=== PATIENT | male | born 1990 | race African-American/Black ===

== ENCOUNTER 2016-11-15 14:18 | Emergency (ER) | payer SELFPAY ==
[2016-11-15] MEDS ORDERED: DIPHENHYDRAMINE HCL 50 MG CAPSULE PO ONE (14:27)
--- NOTE | 2016-11-15 14:30 | ER Document Report ---
ED Medical Screen (RME) - General Stated Complaint: POSSIBLE ALERGIC REACTION Time seen by provider: 14:26 Mode of Arrival: Ambulatory Information source: Patient Notes: 26-year-old male developed generalized itching after second dose of penicillin on Monday after oral surgery for wisdom teeth. He wants to know what he can do for the itching. I do not see a rash at this time. Patient has is why they can come get him to take him home after he is treated. I have greeted and performed a rapid initial assessment of this patient. A comprehensive ED assessment, evaluation of the patient, analysis of test results , and completion of the medical decision making process will be conducted by additional ED providers. TRAVEL OUTSIDE OF THE [place] IN LAST 30 DAYS: No - Related Data Allergies/Adverse Reactions: No Known Allergies Allergy (Verified 11/15/16 14:21) Past Medical History - Past Medical History Cardiac Medical History: Denies: Hx Heart Attack, Hx Hypercholesterolemia, Hx Hypertension, Hx Peripheral Vascular Disease, Hx Pulmonary Embolism, Hx Heart Murmur Pulmonary Medical History: Reports: Hx Asthma - Immunizations Hx Diphtheria, Pertussis, Tetanus Vaccination: Yes Physical Exam - Vital signs Vitals: Temp Pulse Resp BP Pulse Ox 98.2 F 113 H 14 136/89 H 98 11/15/16 14:23 11/15/16 14:23 11/15/16 14:23 11/15/16 14:23 11/15/16 14:23 Course - Vital Signs Vital signs: Temp Pulse Resp BP Pulse Ox 98.2 F 113 H 14 136/89 H 98 11/15/16 14:23 11/15/16 14:23 11/15/16 14:23 11/15/16 14:23 11/15/16 14:23
--- NOTE | 2016-11-15 16:25 | ER Document Report ---
ED General - General Chief Complaint: Allergic Reaction Stated Complaint: POSSIBLE ALERGIC REACTION Time seen by provider: 16:20 Mode of Arrival: Ambulatory Information source: Patient Notes: 26-year-old male had right lower wisdom tooth removed 5 days ago. He was prescribed penicillin at that time and notes that after the second dose he began breaking out over his entire body with an itching red rash and had a sensation of swelling around his upper and lower lips. He reports he briefly had a sensation of difficulty breathing with that. He has not taken any more penicillin and says all these symptoms are better but not completely resolved. He says he was also prescribed medication for pain but has not taken any of that. He reports he has virtually no pain at the surgical site and has not noted any swelling in the area. No he's not been on antibiotics since the day of surgery. Physical Exam: General: Alert, appears well. HEENT: Normocephalic. Atraumatic. PERRLA. Extraocular movements intact. Oropharynx clear. Right lower wisdom tooth site appears healthy with no signs or symptoms of infection. Patient has no edema in the face or tongue and no stridor or hoarseness or drooling Neck: Supple. Non-tender. Respiratory: No respiratory distress. Clear and equal breath sounds bilaterally. Cardiovascular: Regular rate and rhythm. Abdominal: Normal Inspection. Soft, non-tender. No distension. Normal Bowel Sounds. Back: Non-tender. No deformity or step off. Extremities: Moves all four extremities. Upper extremities: Normal inspection. Non-tender. Normal color. Normal ROM. Normal temperature. Lower extremities: Normal inspection. Non-tender. No edema. Normal color. Normal ROM. Normal temperature. Neurological: Cranial nerves II-XII grossly intact bilaterally. Strength 5/5 throughout. Sensation intact to light touch. Normal cognition. AAOx4. Normal speech. Psychological: Normal affect. Normal Mood. Skin: Warm. Dry. Normal color. Patient has no rash currently TRAVEL OUTSIDE OF THE [place] IN LAST 30 DAYS: No - Related Data Allergies/Adverse Reactions: No Known Allergies Allergy (Verified 11/15/16 14:21) Past Medical History - General Information source: Patient - Social History Smoking Status: Never Smoker Frequency of alcohol use: None Drug Abuse: None Family History: Reviewed & Not Pertinent Patient has suicidal ideation: No Patient has homicidal ideation: No - Past Medical History Cardiac Medical History: Denies: Hx Heart Attack, Hx Hypercholesterolemia, Hx Hypertension, Hx Peripheral Vascular Disease, Hx Pulmonary Embolism, Hx Heart Murmur Pulmonary Medical History: Reports: Hx Asthma Renal/ Medical History: Denies: Hx Peritoneal Dialysis - Immunizations Hx Diphtheria, Pertussis, Tetanus Vaccination: Yes Review of Systems - Review of Systems Constitutional: denies: Chills, Fever EENT: denies: Ear pain, Throat pain Cardiovascular: denies: Chest pain Respiratory: denies: Cough Gastrointestinal: denies: Abdominal pain, Nausea, Vomiting Genitourinary: denies: Burning Musculoskeletal: denies: Back pain Skin: See HPI Hematologic/Lymphatic: denies: Swollen glands Neurological/Psychological: denies: Weakness, Numbness Physical Exam - Vital signs Vitals: Temp Pulse Resp BP Pulse Ox 98.2 F 113 H 14 136/89 H 98 11/15/16 14:23 11/15/16 14:23 11/15/16 14:23 11/15/16 14:23 11/15/16 14:23 Course - Re-evaluation Re-evalutation: 11/15/16 16:24 Patient is describing symptoms concerning for allergic reaction to penicillin though it is surprising that he still has any symptoms at all having not taken any in 4 days. He reports scribed Medrol Dosepak but of instructed him that he does not need to fill that if he finds the Benadryl alone helps his symptoms should resolve on her own within the next few days in any case. - Vital Signs Vital signs: Temp Pulse Resp BP Pulse Ox 98.2 F 113 H 14 136/89 H 98 11/15/16 14:23 11/15/16 14:23 11/15/16 14:23 11/15/16 14:23 11/15/16 14:23 Discharge - Discharge Clinical Impression: Penicillin allergy Condition: Stable Disposition: HOME, SELF-CARE Additional Instructions: You may take Benadryl 25 mg up to 4 times a day for itching. You may take Pepcid 20 mg twice a day for rash. Your prescribed Medrol which will also help with itching and rash but if her symptoms get better without this you do not need to fill the prescription. Call your dentist in left him know that you are unable to take the penicillin. Prescriptions: Methylprednisolone [Medrol Dosepack (4 mg/Tab) 21 Tab/Dosepak] 4 mg PO ASDIR PRN #21 [email or web address] PRN Reason:
[2016-11-15 16:56] VITALS: BP 127/82
== END 2016-11-15 16:55 | disposition home or self-care (01) ==
LOC: ER 14:18
DX: L27.0 Generalized skin eruption due to drugs and medicaments taken internally (principal); T36.0X5A Adverse effect of penicillins, initial encounter
CPT/HCPCS: 99283

== ENCOUNTER 2016-11-17 19:15 | Emergency (ER) | payer SELFPAY ==
[2016-11-17] MEDS ORDERED: IBUPROFEN 800 MG TABLET PO ONE (20:19)
--- NOTE | 2016-11-17 20:19 | ER Document Report ---
ED Medical Screen (RME) - General Stated Complaint: FEVER Notes: Patient is a 26-year-old male presents emergency Department with 2 days of fever , chills, body aches and chest pain, headache. Patient states that he's been treating his fever at home with by mouth antipyretics. Last dose was 11 AM. Denies any sick contacts at home. didnt receive a flu vaccine this year I have greeted and performed a rapid initial assessment of this patient. A comprehensive ED assessment and evaluation of the patient, analysis of test results and completion of the medical decision making process will be conducted by additional ED providers. TRAVEL OUTSIDE OF THE [place] IN LAST 30 DAYS: No - Related Data Allergies/Adverse Reactions: Penicillins Allergy (Verified 11/17/16 20:17) Past Medical History - Past Medical History Cardiac Medical History: Denies: Hx Heart Attack, Hx Hypercholesterolemia, Hx Hypertension, Hx Peripheral Vascular Disease, Hx Pulmonary Embolism, Hx Heart Murmur Pulmonary Medical History: Reports: Hx Asthma Renal/ Medical History: Denies: Hx Peritoneal Dialysis - Immunizations Hx Diphtheria, Pertussis, Tetanus Vaccination: Yes Physical Exam - Vital signs Vitals: Temp Pulse Resp BP Pulse Ox 102.8 F H 109 H 17 131/87 H 98 11/17/16 20:07 11/17/16 20:07 11/17/16 20:07 11/17/16 20:07 11/17/16 20:07 Course - Vital Signs Vital signs: Temp Pulse Resp BP Pulse Ox 102.8 F H 109 H 17 131/87 H 98 11/17/16 20:07 11/17/16 20:07 11/17/16 20:07 11/17/16 20:07 11/17/16 20:07
--- NOTE | 2016-11-17 22:19 | ER Document Report ---
ED Flu Like - General Mode of Arrival: Ambulatory Information source: Patient TRAVEL OUTSIDE OF THE [place] IN LAST 30 DAYS: No - General Chief Complaint: Flu Symptoms Stated Complaint: FEVER Notes: Patient is a 26-year-old male that presents to the emergency department today with complaints of flu-like symptoms including nasal congestion, fevers, body aches, and chills. Patient states he has had these symptoms for the last few days. Patient's significant other at bedside was diagnosed with the flu a few weeks ago. Patient has past medical history consistent with asthma. (KEITH MILTON) - Related Data Allergies/Adverse Reactions: Penicillins Allergy (Verified 11/17/16 20:17) Past Medical History - General Information source: Patient - Social History Smoking Status: Never Smoker Cigarette use (# per day): No Chew tobacco use (# tins/day): No Frequency of alcohol use: None Drug Abuse: None Lives with: Family Family History: Reviewed & Not Pertinent Patient has suicidal ideation: No Patient has homicidal ideation: No Pulmonary Medical History: Reports: Hx Asthma Surgical Hx: Negative - Immunizations Hx Diphtheria, Pertussis, Tetanus Vaccination: Yes Review of Systems - Review of Systems Constitutional: See HPI, Fever EENT: See HPI, Nose congestion Cardiovascular: No symptoms reported Respiratory: See HPI, Cough Gastrointestinal: No symptoms reported Genitourinary: No symptoms reported Male Genitourinary: No symptoms reported Musculoskeletal: See HPI, Joint pain - generalized body aches Skin: No symptoms reported Hematologic/Lymphatic: No symptoms reported Neurological/Psychological: No symptoms reported -: Yes All other systems reviewed and negative Physical Exam - General General appearance: Appears well, Alert In distress: None - HEENT Head: Normocephalic, Atraumatic Eyes: Normal Conjunctiva: Normal Extraocular movements intact: Yes Nasal: Clear rhinorrhea - congestion - Respiratory Respiratory status: No respiratory distress Chest status: Nontender Breath sounds: Normal - Cardiovascular Rhythm: Regular Heart sounds: Normal auscultation Murmur: No - Abdominal Inspection: Normal Distension: No distension Bowel sounds: Normal Tenderness: Nontender - Extremities General upper extremity: Normal inspection, Normal ROM. No: Edema General lower extremity: Normal inspection, Normal ROM. No: Edema - Neurological Neuro grossly intact: Yes Cognition: Normal Orientation: AAOx4 Speech: Normal - Psychological Associated symptoms: Normal affect, Normal mood - Skin Skin Temperature: Warm Skin Moisture: Dry Skin Color: Normal Course - Re-evaluation Re-evalutation: 11/17/16 23:15 I personally performed the services described in the documentation, reviewed and edited the documentation which was dictated to my scribe in my presence, and it accurately records my words and actions. She presents the mother to 2 day history of fever chills bodyache chest hurts when he coughs Dr. bay 102S taken Tylenol Motrin given Motrin here with improvement. Patient is well-appearing nontoxic negative strep negative chest x- ray positive flu. Patient does not have money to pay over 100 hours for the Tamiflu prescription nor does he need it because symptoms been going on for 24 hours. He is stable for discharge Tylenol every 4 Motrin every 6 close PCP follow-up and discuss reasons for ED return sooner (LIZETTE SPRINGER) - Vital Signs Vital signs: Temp Pulse Resp BP Pulse Ox 99.0 F 92 17 138/76 H 97 11/17/16 23:38 11/17/16 23:38 11/17/16 23:38 11/17/16 23:38 11/17/16 23:38 Discharge - Discharge Clinical Impression: Influenza A Condition: Stable Disposition: HOME, SELF-CARE Additional Instructions: Influenza What are conditions that should receive medical attention? The development of difficulty breathing. Lip color changes to blue or purple. Persistent vomiting and unable to keep liquids down with signs of dehydration such as: dizziness when standing, unable to urinate, or if child/ is crying no tears are noticed. Is less responsive than normal or becomes confused. How do I decrease the spread of flu in my home? Taking care of the sick patient at home: Keep the sick person in a room separate from the common areas of the house. Keep the "sickroom" door closed. If the person with the flu needs to leave the home, they should cover their nose/mouth when coughing or sneezing and wear a disposable (surgical) mask if available. These masks may be available at your local pharmacy, medical supply and hardware store. If the sick person is in common areas of the house, have them wear a surgical mask. If possible, have the sick person use a separate bathroom that should be cleaned daily with a household disinfectant. If you are the caregiver: Avoid being face to face with the sick adult person as much as possible. Try to stay at least 6 feet away and wear a disposable surgical mask when possible. When holding small children who are sick, place their chin on your shoulder so that they will not cough in your face. Wash your hands after you touch the sick person or handle their tissues and laundry. Wear a mask if you leave home, as you may be infected from taking care of someone and not know it yet. Watch yourself and others in the home for flu symptoms and contact your doctor if symptoms occur. NOTE: Antiviral medication used to reduce the symptoms of the flu works only if taken within 48 hours, and best within 24 hours of symptom onset. Household Cleaning, laundry and waste disposal: Tissues and other disposable items used by the sick person should be thrown away in the trash. Wash your hands after touching these used items. No special waste disposal is required. Keep surfaces (especially bedside tables, bathroom surfaces, and toys for children) clean by wiping them down with a safe household disinfectant according to the directions on the product label. Per CDC advice, most people will not receive testing to confirm flu. Also based on the person's health history and onset of symptoms, not all patients will receive prescriptions for antiviral medications. If you have questions related to this, please ask your healthcare provider. For more information, you can call the Centers for Disease Control and Prevention (CDC) Hotline at 3-775-[employer] This line is available in [place]ayan and Malagasy, 24 hours a day, 7 days a week. Or www.[employer] or www.cdc.gov Flu-Like Illness Home Instructions: The influenza virus infection can cause a wide rage of symptoms, including: Fever, cough, sore throat, body aches, headaches, chills, fatigue, with some patients reporting diarrhea and vomiting Like seasonal influenza A, H1N1 ("swine flu")in humans can vary in severity from mild to severe Severe illness with pneumonia, respiratory failure and even is possible Certain groups might be more likely to develop a severe illness from H1N1 infection. Sometimes bacterial infections may occur at the same time as or after infection with influenza viruses and lead to pneumonias, ear infections, or sinus infections. How Flu Spreads The main way that influenza viruses spread is through respiratory droplets of coughs and sneezes. This can happen when someone with the infection coughs or sneezes and the particles fly through the air and land on other people and surfaces. If the person covers their mouth and nose with their hand but does not wash their hands immediately, then these germs are passed onto the next object that they touch. People with Influenza A or suspected H1N1 (swine flu) who are cared for at home should: Check with their doctor about any special care that they might need if they are or have a health condition such as diabetes, heart disease, asthma or emphysema. Also, limit caregiver to one (if possible). women or those with chronic health conditions should not take care of the flu patient unless necessary. Check with their doctor about whether or not medications are needed that may lessen the symptoms of the flu. Stay at home until 24 hours fever free without the use of fever reducing medication. Get plenty of rest and avoid other healthy people in your home. Drink plenty of clear liquids to keep from getting dehydrated. Take medications like Tylenol (Acetaminophen), Advil/Motrin/Nuprin ( Ibuprofen) or Aleve (Naproxen) for fevers and aches. All children under the age of 18 years of age should not take aspirin or products containing aspirin (e.g. Pepto Bismol), as this can cause a rare serious illness called Akin Syndrome. Over the counter medications for flu and colds may help, but it is very important to follow the package directions. Remember that the medicine may help the symptoms, but it will not help prevent others from getting sick if they are around you. Cover coughs and sneezes using your bent arm. Clean hands with soap and water or an alcohol-based hand rub often, especially after using tissues to cough or sneeze. Encourage hand washing frequently for all people living in the home! The sick person should not have visitors other than caregivers. Encourage concerned loved ones to call instead of visit. Avoid close contact with others-do not go to work or school while sick. Forms: Return to Work Referrals: [facility] [Provider Group] - Follow up in 3-5 days Scribe Documentation - Scribe Written by Surinder:: Surinder Lane, 11/18/2016 0001 acting as scribe for :: Coleman
[2016-11-17 23:39] VITALS: BP 138/76
== END 2016-11-17 23:38 | disposition home or self-care (01) ==
LOC: ER 19:15
DX: J11.1 Influenza due to unidentified influenza virus with other respiratory manifestations (principal); R09.81 Nasal congestion; R50.9 Fever, unspecified; M25.50 Pain in unspecified joint; R05 Cough; R07.89 Other chest pain; J45.909 Unspecified asthma, uncomplicated; Z88.0 Allergy status to penicillin; J34.89 Other specified disorders of nose and nasal sinuses
CPT/HCPCS: 71020; 87070; 87804; 87880; 99284

== ENCOUNTER 2017-12-24 12:38 | Emergency (ER) | payer SELFPAY ==
[2017-12-24 13:04] VITALS: BP 115/75
[2017-12-24] MEDS ORDERED: DEXAMETHASONE SOD PHOS INJ 10 MG/1 ML VIAL IM ONE (14:33)
--- NOTE | 2017-12-24 14:35 | ER Document Report ---
HPI - HPI Pain Level: 3 Notes: Patient is a 27-year-old male who presents to the ED complaining of nasal congestion/discharge, dry nonproductive cough, fever, sore throat, body ache 1 day. Pt exposed to strep by daughter recently. Patient states that he is still eating and drinking without difficulties, but does have a decreased p.o. intake. He is still urinating normally having normal bowel movements. Patient has been using some [id number] meds for symptoms. He denies any significant past medical history including cardiopulmonary history and immunocompromised conditions. Patient denies any smoking or IV drug use. Denies any current headache, neck pain, chest pain, palpitations, syncope, shortness of breath, wheeze, dyspnea, abdominal pain, nausea/vomiting/diarrhea, urinary retention, dysuria, hematuria, or rash. - ROS Systems Reviewed and Negative: Yes All other systems reviewed and negative - CONSTITUTIONAL Constitutional: REPORTS: Fever - yesterday. DENIES: Chills - EENT EENT: REPORTS: Sore Throat - NEURO Neurology: REPORTS: Headache Past Medical History - Social History Smoking Status: Never Smoker Chew tobacco use (# tins/day): No Drug Abuse: None Family History: Reviewed & Not Pertinent Patient has suicidal ideation: No Patient has homicidal ideation: No - Past Medical History Cardiac Medical History: Denies: Hx Heart Attack, Hx Hypercholesterolemia, Hx Hypertension, Hx Peripheral Vascular Disease, Hx Pulmonary Embolism, Hx Heart Murmur Pulmonary Medical History: Reports: Hx Asthma Renal/ Medical History: Denies: Hx Peritoneal Dialysis - Immunizations Hx Diphtheria, Pertussis, Tetanus Vaccination: Yes Vertical Provider Document - CONSTITUTIONAL Agree With Documented VS: Yes Notes: PHYSICAL EXAMINATION: GENERAL: Well-appearing, well-nourished and in no acute distress. A&Ox4. Answers questions appropriately. Moves comfortably w/o notable distress HEAD: Atraumatic, normocephalic. EYES: Pupils equal round and reactive to light, extraocular movements intact, sclera anicteric, conjunctiva are normal. ENT: EAC clear b/l. TM's intact b/l without erythema, fluid, or perforation. Nares patent and with clear discharge. oropharynx mild erythema without exudates. 2+ tonsilar hypertrophy with erythema no exudate. No palatine shift. Uvula midline. No tongue protrusion. No drooling, hoarseness, or airway compromise. Moist mucous membranes. No sinus tenderness. NECK: Normal range of motion, supple without lymphadenopathy. No rigidity/ meningismus. LUNGS: Breath sounds clear to auscultation bilaterally and equal. No wheezes rales or rhonchi. No retractions HEART: Regular rate and rhythm without murmurs, rubs, gallops. ABDOMEN: Soft, nontender, nondistended abdomen. No guarding, no rebound. No masses appreciated. Normal bowel sounds present. No CVA tenderness bilaterally. No hepatosplenomegaly. NEUROLOGICAL: Normal speech, normal gait. Normal sensory, motor exams PSYCH: Normal mood, normal affect. SKIN: Warm, Dry, normal turgor, no rashes or lesions noted. - INFECTION CONTROL TRAVEL OUTSIDE OF THE [place] IN LAST 30 DAYS: No Course - Re-evaluation Re-evalutation: 12/24/17 14:33 Patient is an afebrile, well-hydrated, 27-year-old male who presents to the ED with acute URI/pharyngitis, suspect influenza vs other viral illness. Vitals are acceptable. PE is otherwise unremarkable. Rapid strep negative with a cx pending. No other labs or imaging warranted at this time based on H&P. Patient has no significant cardiopulmonary or immunocompromised medical conditions. Patient's lungs are clear to auscultation bilaterally without tachycardia, hypoxia, or tachypnea. Patient is tolerating p.o. without any difficulties. Decadron given IM today. Thoroughly reviewed the risks, benefits , potential side effects, estimated cost without insurance with patient. After thorough review, patient declined Tamiflu at this time. Low suspicion for any meningitis, sepsis, peritonsillar/pharyngeal abscess, respiratory compromise, severe dehydration, or other emergent systemic condition at this time. Patient is aware this condition can change from initial presentation and he needs to monitor symptoms closely. Conservative measures otherwise for symptoms. Recheck with your PCM in 3-5 days. Return to the ED with any worsening/ concerning symptoms otherwise as reviewed in discharge. Patient is in agreement. - Vital Signs Vital signs: Temp Pulse Resp BP Pulse Ox 98.7 F 60 18 115/75 95 12/24/17 13:03 12/24/17 13:03 12/24/17 13:03 12/24/17 13:03 12/24/17 13:03 Discharge - Discharge Clinical Impression: Acute URI Acute pharyngitis Qualifiers: Pharyngitis/tonsillitis etiology: unspecified etiology Qualified Code(s): J02.9 - Acute pharyngitis, unspecified Condition: Stable Disposition: HOME, SELF-CARE Instructions: Upper Respiratory Illness ([facility]), Sore Throat ([facility]) Additional Instructions: Maintain adequate fluid intake Take meds as directed Salt water gargles, throat sprays, mouthwash rinse, peroxide gargles tylenol/ibuprofen as needed over the counter cold medication as needed for symptoms F/u: with your PCM in 3-5 days for a recheck Consider consult with ENT for ongoing/worsening symptoms Return to the ED with any fever, worsening pain, chest pain, neck pain/stiffness , shortness of breath, cough, drooling, trouble swallowing/breathing, abdominal pain, n/v/d, rash, or worsening/concerning symptoms otherwise. Referrals: PRISCILA ALEXANDER DO [ASSOCIATE] - Follow up as needed
== END 2017-12-24 15:15 | disposition home or self-care (01) ==
LOC: ER 12:38
DX: J06.9 Acute upper respiratory infection, unspecified (principal); J02.0 Streptococcal pharyngitis; R51 Headache
CPT/HCPCS: 99283; 96372; 87880; J1100

== ENCOUNTER 2018-07-30 10:39 | Emergency (ER) | payer SELFPAY ==
[2018-07-30] MEDS ORDERED: ALBUTEROL SULFATE 0.083% NEB 2.5 MG/3 ML AMPUL NEB ONE (12:03)
--- NOTE | 2018-07-30 12:06 | ER Document Report ---
ED Respiratory Problem - General Chief Complaint: Shortness Of Breath Stated Complaint: DIFFICULTY BREATHING Time Seen by Provider: 07/30/18 11:32 Notes: 27-year-old male to the emergency department for evaluation of cough, wheeze and shortness of breath. Patient states he has a history of asthma. Requesting some albuterol. Also has some congestion and some body aches and generally not feeling well. A few other sick contacts he has been around this week. TRAVEL OUTSIDE OF THE [place] IN LAST 30 DAYS: No - HPI Patient complains to provider of: Cough, Hurts to breath, Short of breath Duration: Continuous Context: Hx asthma Chest pain/discomfort: Tightness Cough: Nonproductive - Related Data Allergies/Adverse Reactions: No Known Allergies Allergy (Unverified 07/30/18 11:18) Past Medical History - General Information source: Patient - Social History Smoking Status: Never Smoker Chew tobacco use (# tins/day): No Frequency of alcohol use: None Drug Abuse: None Lives with: Family Family History: Reviewed & Not Pertinent Patient has suicidal ideation: No Patient has homicidal ideation: No - Past Medical History Cardiac Medical History: Denies: Hx Heart Attack, Hx Hypercholesterolemia, Hx Hypertension, Hx Peripheral Vascular Disease, Hx Pulmonary Embolism, Hx Heart Murmur Pulmonary Medical History: Reports: Hx Asthma Renal/ Medical History: Denies: Hx Peritoneal Dialysis - Immunizations Hx Diphtheria, Pertussis, Tetanus Vaccination: Yes Review of Systems - Review of Systems Notes: Constitutional: denies: Chills, Diaphoresis, Fever, Malaise, Weakness EENT: denies: Eye discharge, Blurred vision, Tearing, Double vision, Nose congestion, Nose discharge, Throat swelling, Mouth pain Cardiovascular: denies: Palpitations, Heart racing, Orthopnea, Dyspnea, Chest pain Respiratory: Complaining of cough, shortness of breath, wheeze Gastrointestinal: denies: Abdominal pain, Diarrhea, Nausea, Vomiting, Black stools, bright red blood in stool Genitourinary: denies: Burning, Dysuria, Discharge, Frequency, Flank pain, Hematuria Musculoskeletal: denies: Joint pain, Joint swelling, Muscle pain, Muscle stiffness, back pain Hematologic/Lymphatic: denies: Anemia, Easy bleeding, Easy bruising, Blood clots Neurological/Psychological: denies: Confusion, Dementia, Depression, Loss of consciousness Skin: No lesions, no masses, no skin breakdown, no abscesses Physical Exam - Vital signs Vitals: Temp Pulse Resp BP Pulse Ox 97.3 F 83 14 124/76 98 07/30/18 10:46 07/30/18 10:46 07/30/18 10:46 07/30/18 10:46 07/30/18 10:46 Interpretation: Normal - General General appearance: Appears well, Alert - HEENT Head: Normocephalic, Atraumatic Eyes: Normal Pupils: PERRL - Respiratory Respiratory status: No respiratory distress Chest status: Nontender Breath sounds: Nonproductive cough, Wheezing. No: Decreased air movement, Rales , Rhonchi, Stridor Chest palpation: Normal - Cardiovascular Rhythm: Regular Heart sounds: Normal auscultation Murmur: No - Abdominal Inspection: Normal Distension: No distension Bowel sounds: Normal Tenderness: Nontender Organomegaly: No organomegaly - Back Back: Normal, Nontender - Extremities General upper extremity: Normal inspection, Nontender, Normal color, Normal ROM , Normal temperature General lower extremity: Normal inspection, Nontender, Normal color, Normal ROM , Normal temperature, Normal weight bearing. No: Yossi's sign - Neurological Neuro grossly intact: Yes Cognition: Normal Orientation: AAOx4 Sanam Coma Scale Eye Opening: Spontaneous Sanam Coma Scale Verbal: Oriented Friend Coma Scale Motor: Obeys Commands Friend Coma Scale Total: 15 Speech: Normal Motor strength normal: LUE, RUE, LLE, RLE Sensory: Normal - Psychological Associated symptoms: Normal affect, Normal mood - Skin Skin Temperature: Warm Skin Moisture: Dry Skin Color: Normal Course - Re-evaluation Re-evalutation: 07/30/18 16:19 Will give patient prescription for albuterol and prednisone. Patient is comfortable with this plan. Advised to return for any worsening symptoms. - Vital Signs Vital signs: Temp Pulse Resp BP Pulse Ox 97.3 F 72 18 124/77 99 07/30/18 10:46 07/30/18 12:26 07/30/18 12:26 07/30/18 12:26 07/30/18 12:26 Discharge - Discharge Clinical Impression: Bronchitis Condition: Good Disposition: HOME, SELF-CARE Instructions: Bronchitis ([facility]) Prescriptions: Albuterol Sulfate [Ventolin 0.083% Neb 2.5 mg/3 mL Ampul] 1 vial NEB Q4H PRN 5 Days #25 vial PRN Reason: Prednisone [Deltasone 20 mg Tablet] 60 mg PO DAILY 5 Days #15 tablet Forms: Return to Work
[2018-07-30 12:27] VITALS: BP 124/77
== END 2018-07-30 12:27 | disposition home or self-care (01) ==
LOC: ER 10:39
DX: J45.909 Unspecified asthma, uncomplicated (principal); R06.02 Shortness of breath; R05 Cough; R09.81 Nasal congestion; M79.10 Myalgia, unspecified site; I10 Essential (primary) hypertension
CPT/HCPCS: 94640; 99284

== ENCOUNTER 2018-12-08 20:07 | Emergency (ER) | payer SELFPAY ==
--- NOTE | 2018-12-08 21:13 | RADIOLOGY REPORT (SQ) ---
EXAM DESCRIPTION: XR KNEE 4 OR MORE VIEWS COMPLETED DATE/TME: 12/08/2018 00:00 CLINICAL HISTORY: 28 years, Male, INJURY COMPARISON: None. FINDINGS: No fracture or dislocation. Soft tissues are unremarkable. IMPRESSION: No acute abnormality.
[2018-12-08] MEDS ORDERED: IBUPROFEN 600 MG TABLET PO ONE (22:27)
[2018-12-08] MEDS ORDERED: ACETAMINOPHEN 325 MG TABLET PO ONE (22:27)
--- NOTE | 2018-12-08 22:31 | ER Document Report ---
Addendum entered and electronically signed by ODETTE GARCIA FNP 12/08/18 22:59: Discharge - Discharge Clinical Impression: Right knee pain Qualifiers: Chronicity: acute Qualified Code(s): M25.561 - Pain in right knee Condition: Stable Disposition: HOME, SELF-CARE Instructions: Use of Crutches ([facility]), Ice & Elevation ([facility]), Knee Immobilizing Splint ([facility]), Sprained Knee ([facility]) Additional Instructions: You were seen today in the emergency department after a knee injury. You have been provided crutches and a knee immobilizer. Please follow-up with orthopedics in regards to this visit. You can take ibuprofen 600 mg and acetaminophen 1000 mg every 6 hours as needed for your pain. If you have worsening symptoms, or unable to walk, or have any symptoms that are worrisome to you, please return to the emergency department. Forms: Return to Work Referrals: TRACIE ALCALA, [ACTIVE STAFF] - Follow up as needed Original Note: HPI - HPI Time Seen by Provider: 12/08/18 22:14 Pain Level: 5 Context: Patient is a 28-year-old male who presents emergency department with a chief complaint of right knee pain. He was playing basketball and was running. She states that when he was running his knee gave out and he felt like it moved medial than laterally. This happened around 1830 this evening. He has a past medical history of tendinitis from when he was in eighth grade. Denies any other past medical history. He has not taken any medication for the pain. Walking makes pain worse. He is able to bend his knee to 90 degrees, but it is painful. And also hurts when he steps down on his foot. - ROS Systems Reviewed and Negative: Yes All other systems reviewed and negative - CONSTITUTIONAL Constitutional: DENIES: Fever, Chills - GASTROINTESTINAL Gastrointestinal: DENIES: Abdominal Pain - MUSCULOSKELETAL Musculoskeletal: REPORTS: Extremity pain - rt knee - DERM Skin Color: Normal Skin Problems: None Past Medical History - Social History Smoking Status: Current Every Day Smoker Frequency of alcohol use: None Drug Abuse: None Family History: Reviewed & Not Pertinent Patient has suicidal ideation: No Patient has homicidal ideation: No - Past Medical History Cardiac Medical History: Denies: Hx Heart Attack, Hx Hypercholesterolemia, Hx Hypertension, Hx Peripheral Vascular Disease, Hx Pulmonary Embolism, Hx Heart Murmur Pulmonary Medical History: Reports: Hx Asthma Renal/ Medical History: Denies: Hx Peritoneal Dialysis - Immunizations Hx Diphtheria, Pertussis, Tetanus Vaccination: Yes Vertical Provider Document - CONSTITUTIONAL Agree With Documented VS: Yes Exam Limitations: No Limitations General Appearance: No Apparent Distress - INFECTION CONTROL TRAVEL OUTSIDE OF THE [place] IN LAST 30 DAYS: No - HEENT HEENT: Atraumatic, Normocephalic - NECK Neck: Normal Inspection - RESPIRATORY Respiratory: No Respiratory Distress - CARDIOVASCULAR Cardiovascular: Regular Rate Pulses: Normal: Radial, Popliteal, Dorsalis pedis - MUSCULOSKELETAL/EXTREMETIES Musculoskeletal/Extremeties: Tender - Right knee at MCL and LCL - NEURO Level of Consciousness: Awake, Alert, Appropriate Motor/Sensory: No Motor Deficit, No Sensory Deficit - DERM Integumentary: Warm, Dry Course - Re-evaluation Re-evalutation: 12/08/18 22:31 Patient's knee x-ray is negative for any acute fracture. I do not suspect he has any life-threatening etiology at this time. His knee exam is tender upon palpation to MCL and LCL. He will be provided a knee immobilizer and crutches. Ibuprofen and Tylenol be given for pain control. He will follow-up with orthopedics on Monday. Verbal discharge instructions were given to the patient. They verbalized understanding. They are stable for discharge. - Vital Signs Vital signs: Temp Pulse Resp BP Pulse Ox 98.6 F 65 18 109/50 L 95 12/08/18 20:09 12/08/18 20:09 12/08/18 20:09 12/08/18 20:09 12/08/18 20:09 Procedures - Immobilization Right Knee Pre-Proc Neuro Vasc Exam: Normal Immobilizer type: Knee immobilizer Performed by: RN Post-Proc Neuro Vasc Exam: Normal, Unchanged from pre-exam Alignment checked and good: Yes Discharge - Discharge Clinical Impression: Right knee pain Qualifiers: Chronicity: acute Qualified Code(s): M25.561 - Pain in right knee Condition: Stable Disposition: HOME, SELF-CARE Instructions: Use of Crutches ([facility]), Ice & Elevation ([facility]), Knee Immobilizing Splint ([facility]), Sprained Knee ([facility]) Additional Instructions: You were seen today in the emergency department after a knee injury. You have been provided crutches and a knee immobilizer. Please follow-up with orthopedics in regards to this visit. You can take ibuprofen 600 mg and acetaminophen 1000 mg every 6 hours as needed for your pain. If you have worsening symptoms, or unable to walk, or have any symptoms that are worrisome to you, please return to the emergency department. Referrals: TRACIE ALCALA, [ACTIVE STAFF] - Follow up as needed
[2018-12-08 22:50] VITALS: BP 130/81
== END 2018-12-08 22:50 | disposition home or self-care (01) ==
LOC: ER 20:07
DX: M25.561 Pain in right knee (principal); F17.200 Nicotine dependence, unspecified, uncomplicated
CPT/HCPCS: 99283; 73564; L1830

== ENCOUNTER 2019-02-18 13:23 | Emergency (ER) | payer MEDICAID ==
[2019-02-18 13:39] VITALS: BP 147/105
[2019-02-18] MEDS ORDERED: CLONIDINE HCL 0.1 MG TABLET PO ONE (13:49)
--- NOTE | 2019-02-18 13:51 | ER Document Report ---
ED Medical Screen (RME) - General Chief Complaint: High Blood Pressure Stated Complaint: BLOOD PRESSURE ISSUES Time Seen by Provider: 02/18/19 13:49 TRAVEL OUTSIDE OF THE [place] IN LAST 30 DAYS: No - HPI Notes: 02/18/19 13:49 Patient is a 28-year-old male who just had knee surgery a week ago who presents complaining of having elevated blood pressure since his surgery, but developing intermittent headaches and blurriness in his vision over the past couple days. Patient states that he currently does not have a headache, but does have some blurriness in his vision. He is eating and drinking without difficulty. He is urinating normally. Patient is on pain medicine as well as a muscle relaxer and aspirin. Denies fever, neck pain, URI, CP, SOB, Abd pain, n/v, dysuria, back pain, or rash. I have treated and performed a rapid initial assessment of this patient. A comprehensive ED assessment and evaluation of the patient, analysis of test results and completion of medical decision making process will be conducted by additional ED providers. PHYSICAL EXAMINATION: GENERAL: Well-appearing, well-nourished and in no acute distress. A&Ox4. Answers questions appropriately. Eyes: PERRLA, EOMI b/l. LUNGS: Breath sounds clear to auscultation bilaterally and equal. No wheezes rales or rhonchi. HEART: Regular rate and rhythm without murmurs, rubs, gallops. Neuro: Cranial nerves grossly intact. - Related Data Allergies/Adverse Reactions: No Known Allergies Allergy (Verified 02/18/19 13:30) Past Medical History - Past Medical History Cardiac Medical History: Denies: Hx Heart Attack, Hx Hypercholesterolemia, Hx Hypertension, Hx Peripheral Vascular Disease, Hx Pulmonary Embolism, Hx Heart Murmur Pulmonary Medical History: Reports: Hx Asthma Renal/ Medical History: Denies: Hx Peritoneal Dialysis - Immunizations Hx Diphtheria, Pertussis, Tetanus Vaccination: Yes Physical Exam - Vital signs Vitals: Temp Pulse Resp BP Pulse Ox 98.6 F 107 H 18 147/105 H 100 02/18/19 13:37 02/18/19 13:37 02/18/19 13:37 02/18/19 13:37 02/18/19 13:37 Course - Vital Signs Vital signs: Temp Pulse Resp BP Pulse Ox 98.6 F 107 H 18 147/105 H 100 02/18/19 13:37 02/18/19 13:37 02/18/19 13:37 02/18/19 13:37 02/18/19 13:37
[2019-02-18 14:53] LABS: ABSOLUTE EOSINOPHILS # (AUTO) 0.3 10^3/uL (0.0-0.6); ABSOLUTE LYMPHOCYTES (AUTO) 2.2 10^3/uL (0.5-4.7); ABSOLUTE MONOCYTES (AUTO) 0.9 10^3/uL (0.1-1.4); ABSOLUTE NEUT (AUTO) 8.1 10^3/uL (1.7-8.2); BASOPHILS % (AUTO) 0.3 % (0-2); EOSINOPHILS % (AUTO) 2.4 % (0-6); HEMATOCRIT 50.7 % (37.9-51.0); HEMOGLOBIN 17.3 g/dL (13.5-17.0); LYMPHOCYTES % (AUTO) 18.7 % (13-45); MEAN CORPUSCULAR HEMOGLOBIN 28.9 pg (27.0-33.4); MEAN CORPUSCULAR HGB CONC 34.1 g/dL (32.0-36.0); MEAN CORPUSCULAR VOLUME 85 fl (80-97); MONOCYTES % (AUTO) 8.1 % (3-13); PLATELET COUNT 294 10^3/uL (150-450); RED BLOOD COUNT 5.99 10^6/uL (4.35-5.55); RED CELL DISTRIBUTION WIDTH 15.5 % (11.5-14.0); SEGMENTED NEUTROPHILS % (AUTO) 70.5 % (42-78); TOTAL CELLS COUNTED % (AUTO) 100 %; WHITE BLOOD COUNT 11.6 10^3/uL (4.0-10.5)
[2019-02-18 15:15] LABS: ALANINE AMINOTRANSFERASE 40 U/L (21-72); ALBUMIN 5.1 g/dL (3.5-5.0); ALKALINE PHOSPHATASE 108 U/L (38-126); ANION GAP 16 (5-19); ASPARTATE AMINO TRANSFERASE 34 U/L (17-59); BILIRUBIN,DIRECT 0.2 mg/dL (0.0-0.4); BILIRUBIN,TOTAL 1.3 mg/dL (0.2-1.3); BLOOD UREA NITROGEN 13 mg/dL (7-20); CALCIUM 10.4 mg/dL (8.4-10.2); CARBON DIOXIDE 25 mmol/L (22-30); CHLORIDE 102 mmol/L (98-107); GLUCOSE 97 mg/dL (75-110); POTASSIUM 4.2 mmol/L (3.6-5.0); SODIUM 142.5 mmol/L (137-145); TOTAL PROTEIN 8.7 g/dL (6.3-8.2)
--- NOTE | 2019-02-18 16:01 | ER Document Report ---
HPI - HPI Time Seen by Provider: 02/18/19 13:49 Pain Level: 3 Notes: Patient is a 28-year-old male who just had knee surgery a week ago who presents complaining of having elevated blood pressure since his surgery, but developing intermittent headaches and blurriness in his vision over the past couple days. Patient states that he currently does not have a headache, but does have some blurriness in his vision. He is eating and drinking without difficulty. He is urinating normally. Patient is on pain medicine as well as a muscle relaxer and aspirin. Denies any headache, fever, head injury, neck pain, changes in speech/mentation/hearing, URI, sore throat, chest pain, palpitations, syncope, cough, shortness of breath, wheeze, dyspnea, abdominal pain, nausea/v omiting/diarrhea, urinary retention, dysuria, hematuria, loss of control of bowel or bladder, numbness/tingling, saddle anesthesia, muscle paralysis/weakness, or rash. - ROS Systems Reviewed and Negative: Yes All other systems reviewed and negative - DERM Skin Color: Normal Past Medical History - Social History Smoking Status: Never Smoker Family History: Reviewed & Not Pertinent Patient has suicidal ideation: No Patient has homicidal ideation: No - Past Medical History Cardiac Medical History: Denies: Hx Heart Attack, Hx Hypercholesterolemia, Hx Hypertension, Hx Peripheral Vascular Disease, Hx Pulmonary Embolism, Hx Heart Murmur Pulmonary Medical History: Reports: Hx Asthma Renal/ Medical History: Denies: Hx Peritoneal Dialysis Past Surgical History: Reports: Hx Orthopedic Surgery - R knee - Immunizations Hx Diphtheria, Pertussis, Tetanus Vaccination: Yes Vertical Provider Document - CONSTITUTIONAL Agree With Documented VS: Yes Notes: PHYSICAL EXAMINATION: GENERAL: Well-appearing, well-nourished and in no acute distress. A&Ox4. Answers questions appropriately. HEAD: Atraumatic, normocephalic. EYES: Pupils equal round and reactive to light, extraocular movements intact, sclera anicteric, conjunctiva are normal. No obvious papilledema, difficult to assess without mydriatic pupils, however. Visual acuity 20/20 by myself at bedside. ENT: Nares patent and without discharge. oropharynx clear without exudates. No tonsilar hypertrophy or erythema. Moist mucous membranes. NECK: Normal range of motion, supple without lymphadenopathy LUNGS: Breath sounds clear to auscultation bilaterally and equal. No wheezes rales or rhonchi. HEART: Regular rate and rhythm without murmurs, rubs, gallops. ABDOMEN: Soft, nontender, nondistended abdomen. No guarding, no rebound. No masses appreciated. Normal bowel sounds present. No CVA tenderness bilaterally. Musculoskeletal: Rt LE in splint Extremities: No cyanosis, clubbing, or edema b/l. Peripheral pulses 2+. Capillary refill less than 3 seconds. NEUROLOGICAL: Normal speech, normal gait. Cranial nerves grossly intact. PSYCH: Normal mood, normal affect. SKIN: Warm, Dry, normal turgor, no rashes or lesions noted. - INFECTION CONTROL TRAVEL OUTSIDE OF THE [place] IN LAST 30 DAYS: No Course - Re-evaluation Re-evalutation: 02/18/19 16:04 Patient is an afebrile, well-hydrated 28-year-old male who presents to the ED with elevated blood pressure. Vitals are acceptable without any significant tachycardia, tachypnea, or hypoxia. PE is otherwise unremarkable and negative for any focal neurological deficits. Patient is nontoxic-appearing and is tolerating p.o. without any difficulties. Pt is currently asymptomatic. Patient was given 0.1 mg of clonidine today. Labs are unremarkable for acute pathology. Patient does not have any chest pain, dyspnea, headache, or shortness of breath. Patient requesting to go home. Patient's presentation and symptomatology creates low suspicion for ACS, PE, pneumothorax, pericarditis, dissection, respiratory compromise, severe dehydration, sepsis, meningitis, ICP, or other systemic emergent condition at this time. Patient is aware that his condition can change from initial presentation and he needs to monitor symptoms closely and seek medical attention for any acute changes. Recommend conservative measures for symptoms. Recheck with your PCM in 2-3 days. Consider consult with Cardiology. Return to the ED with any worsening/concerning symptoms otherwise as reviewed in discharge. Patient is in agreement. - Vital Signs Vital signs: Temp Pulse Resp BP Pulse Ox 98.6 F 107 H 18 147/105 H 100 02/18/19 13:37 02/18/19 13:37 02/18/19 13:37 02/18/19 13:37 02/18/19 13:37 - Laboratory Result Diagrams: 02/18/19 14:40 02/18/19 14:40 Laboratory results interpreted by me: 02/18/19 02/18/19 14:40 14:40 WBC 11.6 H RBC 5.99 H Hgb 17.3 H RDW 15.5 H Calcium 10.4 H Total Protein 8.7 H Albumin 5.1 H Discharge - Discharge Clinical Impression: Elevated blood pressure reading Condition: Stable Disposition: HOME, SELF-CARE Instructions: High Blood Pressure ([facility]) Additional Instructions: Maintain adequate fluid and food intake Take home medications as directed Low sodium/fat diet Monitor blood pressure daily and keep a log Monitor symptoms for any acute changes Recheck with your PCM in 3-5 days Consider a follow-up with cardiology Return to the ED with any worsening symptoms and/or development of fever, headache, chest pain, palpitations, syncope, shortness of breath, trouble breathing, abdominal pain, n/v/d, blood in stool/urine, loss of control of bowel/bladder, urinary retention, muscle weakness/paralysis, numbness/tingling, or other worsening symptoms that are concerning to you. Prescriptions: Hydrochlorothiazide 12.5 mg PO DAILY #10 tablet Forms: Elevated Blood Pressure Referrals: AUGUSTO MARTINEZ MD [ACTIVE STAFF] - Follow up as needed
== END 2019-02-18 18:07 | disposition home or self-care (01) ==
LOC: ER 13:23
DX: R03.0 Elevated blood-pressure reading, without diagnosis of hypertension (principal); R51 Headache; H53.8 Other visual disturbances; J45.909 Unspecified asthma, uncomplicated
CPT/HCPCS: 99283; 36415; 85025; 80053; J3490